=== PATIENT | male | born 1955 | race Caucasian/White ===

== ENCOUNTER → 2017-03-02 | Outpatient (CLI) | payer BC ==
[~2017-03-02] MED LIST: OPTIRAY 320 IV PRN
--- NOTE | 2017-03-02 17:15 | DIAGNOSTIC IMAGING REPORT ---
CT SCAN OF THE ABDOMEN AND PELVIS WITH IV CONTRAST CLINICAL HISTORY: Polycythemia. COMPARISON STUDY: No priors. TECHNIQUE: Following the IV administration of 119 cc of Optiray 320, CT scan of the abdomen and pelvis is performed from the lung bases to the proximal femora. Images are reviewed in the axial, sagittal, and coronal planes. IV contrast was administered without complication. A dose lowering technique was utilized adhering to the principles of ALARA. CT DOSE: 703.18 mGy.cm FINDINGS: Lung bases: The heart is normal in size and without pericardial effusion. There is linear atelectasis versus scarring at both lung bases. Tiny calcified granulomas are observed. No airspace consolidation or pleural effusion is seen. There is a tiny hiatal hernia. Liver: The contrast-enhanced liver is enlarged, measuring 19.4 cm in length. The liver demonstrates diffusely diminished attenuation consistent with mild steatosis. Fatty infiltration is seen adjacent to the falciform ligament. There is no intrahepatic biliary ductal dilatation. The hepatic veins and portal veins are patent. Gallbladder: Unremarkable. Spleen: Normal in size and attenuation, measuring 12.5 cm in length. Pancreas: There is moderate fatty atrophy of the pancreas. Adrenal glands: Unremarkable. Kidneys: The contrast enhanced kidneys are normal in size and without hydronephrosis. The kidneys enhance symmetrically. A 2.3 cm cyst is noted in the interpolar left kidney. Abdominal vasculature: The abdominal aorta is normal in course and caliber. Bowel: The small bowel and colon are normal in course and caliber. The appendix is well-visualized and normal. Peritoneum: There is no intraperitoneal free air or abdominal ascites. There is a small fat-containing local hernia. Lymphadenopathy: No pathologically enlarged lymph nodes are seen in the abdomen or pelvis. Prominent extra-axial iliac chain nodes measure up to 9 mm in short axis. Pelvic viscera: There is median lobe hypertrophy of the prostate gland. The bladder is normal as visualized. Skeletal structures: There is mild to moderate lumbosacral spondylosis and scoliosis. A hemangioma is seen in the body of L1. No lytic or blastic lesions are seen. IMPRESSION: 1. There are no acute infectious or inflammatory findings in the abdomen or pelvis. No mass lesion is seen. 2. Hepatomegaly and mild hepatic steatosis. 3. The spleen is normal in size. 4. Additional findings as above. Electronically signed by: Mj Parr M.D. 03/02/2017 5:13 PM Dictated Date/Time: 03/02/2017 5:08 PM
== END | disposition home or self-care (01) ==
LOC: C.CTS 14:37
PROVIDERS: ATTEND Internal Medicine Hematology & Oncology
DX: D75.1 Secondary polycythemia (principal); R16.0 Hepatomegaly, not elsewhere classified; K76.0 Fatty (change of) liver, not elsewhere classified